=== PATIENT | male | born 1975 | race African-American/Black ===

== ENCOUNTER 2020-05-26 23:46 | Emergency (ER) | payer OTHER ==
[2020-05-27 00:08] VITALS: BMI 28.1
[2020-05-27] MEDS ORDERED: FAMOTIDINE 20 MG/50 ML IVPB 20 MG/50 ML MG IVPB ONE ×2 (01:21→01:40)
[2020-05-27] MEDS ORDERED: MAG HYDROX/AL HYDROX/SIMETH 30 ML UNIT-DOSE CUP PO ONE (01:21)
[2020-05-27] MEDS ORDERED: ACETAMINOPHEN 1000 MG/100 ML VIAL (NON FORMULARY) IVPB ONE (01:22)
[2020-05-27] MEDS ORDERED: ACETAMINOPHEN INJECTION 100 ML IVPB ONE (01:40)
[2020-05-27] MEDS ORDERED: MAG HYDROX/AL HYDROX/SIMETH 30 ML UNIT-DOSE CUP ONE (01:40)
[2020-05-27 01:47] LABS: BASO % 0.5 % (0-2.0); EOS % 1.2 % (0-4.5); HEMATOCRIT 46.1 % (35.4-49); HEMOGLOBIN 15.4 GM/dL (11.7-16.9); LYMPH % 29.7 % (8-40); MCH 29.4 pg (25.7-33.7); MCHC 33.4 g/dl (32.0-35.9); MEAN CELL VOLUME 87.9 fl (80-96); MONO % 10.9 % (3.8-10.2); NEUT % 57.7 % (42.8-82.8); PLATELET COUNT 218 K/MM3 (134-434); RBC 5.24 M/mm3 (4.00-5.60); RDW 12.7 % (11.9-15.9)
[2020-05-27] MEDS ORDERED: SODIUM CHLORIDE 0.9% 500 ML INFUS.BAG IV ONE (01:58)
[2020-05-27 02:08] LABS: CHLORIDE 99 mmol/L (98-107)
[2020-05-27 02:10] LABS: ALBUMIN 3.6 g/dl (3.4-5.0); BLOOD UREA NITROGEN 12.8 mg/dL (7-18); CALCIUM 8.8 mg/dL (8.5-10.1); CO2 26 mmol/L (21-32); GLUCOSE,RANDOM 199 mg/dL (74-106); LIPASE 20 U/L (73-393)
[2020-05-27 02:15] LABS: TOT PROT 8.1 g/dl (6.4-8.2)
[2020-05-27 02:16] LABS: ALK PHOS 71 U/L (45-117)
[2020-05-27 02:43] LABS: SGOT/AST 160 U/L (15-37); SGPT/ALT 43 U/L (13-61)
[2020-05-27 03:13] LABS: ANION GAP -6 MMOL/L (8-16)
[2020-05-27 03:30] LABS: SODIUM 119 mmol/L (136-145)
[2020-05-27 03:34] LABS: CALCIUM 9.6 mg/dL (8.5-10.1)
[2020-05-27 03:35] LABS: BILIRUBIN,TOTAL < 0.1 mg/dL (0.2-1)
[2020-05-27 03:35] LABS: BLOOD UREA NITROGEN 13.2 mg/dL (7-18)
[2020-05-27 03:38] LABS: CREATININE 0.9 mg/dL (0.55-1.3)
[2020-05-27 03:39] LABS: BILIRUBIN,TOTAL 0.6 mg/dL (0.2-1); TOT PROT 7.2 g/dl (6.4-8.2)
[2020-05-27 03:48] LABS: ALBUMIN 4.3 g/dl (3.4-5.0)
[2020-05-27] MEDS ORDERED: METOCLOPRAMIDE HCL INJECTION 10 MG/2 ML VIAL IVPUSH ONE (04:15)
[2020-05-27] MEDS ORDERED: METOCLOPRAMIDE HCL INJECTION 10 MG/2 ML VIAL ONE (04:22)
[2020-05-27] MEDS ORDERED: metFORMIN HCL 500 MG TABLET (FP) PO ONE (04:38)
[2020-05-27] MEDS ORDERED: metFORMIN HCL 500 MG TABLET (FP) ONE (04:59)
[2020-05-27] MEDS ORDERED: morphine CARPU-JECT 2 MG/1 ML DISP.SYRIN IVPUSH ONE (05:55)
[2020-05-27] MEDS ORDERED: MORPHINE SULFATE 2 MG/ML VIAL ONE (06:01)
[2020-05-27 06:29] VITALS: BP 119/77; PULSE 61; TEMP 98.1
[2020-05-27 08:11] LABS: EPI CELLS 20 /uL (0-25.1); HYALINE CASTS 0 /uL (0-3.1); PH,URINE 6.5 (5.0-8.0); URINE APPEARANCE CLEAR; URINE BACTERIA >9,000 /uL (0-1359); URINE BILIRUBIN NEGATIVE (NEGATIVE); URINE COLOR YELLOW; URINE GLUCOSE (UA) NEGATIVE (NEGATIVE); URINE KETONE NEGATIVE (NEGATIVE); URINE LEUK ESTERASE 1+ (NEGATIVE); URINE NITRITE NEGATIVE (NEGATIVE); URINE PROTEIN NEGATIVE (NEGATIVE); URINE RBC 2 /uL (0-23.9); URINE UROBILINOGEN 0.2 mg/dL (0.2-1.0); URINE WBC 15 /uL (0-25.8)
== END 2020-05-27 08:47 | disposition home or self-care (01) ==
LOC: JER 23:46
PROC: 3E033NZ Introduction of Analgesics, Hypnotics, Sedatives into Peripheral Vein, Percutaneous Approach (ICD-10-PCS; principal; 2020-05-27)
PROC: 3E033GC Introduction of Other Therapeutic Substance into Peripheral Vein, Percutaneous Approach (ICD-10-PCS; 2020-05-27)
DX: N39.0 Urinary tract infection, site not specified (principal); R10.84 Generalized abdominal pain; K52.9 Noninfective gastroenteritis and colitis, unspecified
CPT/HCPCS: 36415; 74019-TC-FY; 74177-TC; 80053; 81003; 83690; 84484; 85025; 87086; 87186; 93005; 93010; 99285-25; C9803; J0131; Q9967; U0003; U0005